=== PATIENT | male | born 1985 | race American Indian/Alaskan Native ===

== ENCOUNTER 2019-02-26 10:02 | Emergency (ER) | payer SELFPAY ==
--- NOTE | 2019-02-26 11:00 | Emergency Department Report ---
ED General Adult HPI - General Chief complaint: Psych Stated complaint: SI/DEPRESSION Time Seen by Provider: 02/26/19 10:26 Source: patient Mode of arrival: Ambulatory Limitations: No Limitations - History of Present Illness Initial comments: This is a 33-year-old gentleman. The patient states he does not have any chronic medical conditions. He does not have any formal psychiatric conditions that he is aware of. He presents to the ER with a complaint of 2 months of suicidality. He does not have a plan to kill himself. He does not have hallucinations. He does not have access to guns or firearms. He states that he has a lot to live for, including his young child, and his . He has chronic lower back pain. 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 He endorses at people at work occasionally make fun of him. He does not want to hurt anybody else. He came in today for assistance. He denies physical pain elsewhere. Symptoms are constant endorses no exacerbating or relieving factors he is aware of. -: Gradual, month(s) Consistency: other Improves with: other Worsens with: other - Related Data Previous Rx's Medication Instructions Recorded Last Taken Type Ciprofloxacin [Ciprofloxacin ORAL 500 mg PO Q12H 10 Days ml 05/25/15 Unknown Rx LIQ] Allergies Allergy/AdvReac Type Severity Reaction Status Date / Time milk AdvReac Unknown Verified 05/25/15 08:50 ED Review of Systems ROS: Stated complaint: SI/DEPRESSION Other details as noted in HPI Constitutional: malaise. denies: fever Eyes: denies: eye discharge ENT: denies: epistaxis Respiratory: denies: cough Cardiovascular: denies: chest pain Gastrointestinal: denies: abdominal pain Genitourinary: denies: dysuria Musculoskeletal: as per HPI Skin: denies: lesions Neurological: denies: confusion Psychiatric: suicidal thoughts. denies: auditory hallucinations, visual hallucinations, homicidal thoughts ED Past Medical Hx - Past Medical History Hx Psychiatric Treatment: Yes (depression, self mutilator) - Social History Smoking Status: Current Every Day Smoker Substance Use Type: None - Medications Home Medications: Home Medications Medication Instructions Recorded Confirmed Last Taken Type Ciprofloxacin [Ciprofloxacin ORAL 500 mg PO Q12H 10 Days ml 05/25/15 Unknown Rx LIQ] ED Physical Exam - General Limitations: No Limitations General appearance: alert, in no apparent distress - Head Head exam: Present: atraumatic, normocephalic - Eye Eye exam: Present: normal appearance, EOMI. Absent: nystagmus - ENT ENT exam: Present: normal exam, normal orophraynx, mucous membranes moist, normal external ear exam - Neck Neck exam: Present: normal inspection, full ROM. Absent: tenderness, meningismus - Respiratory Respiratory exam: Present: normal lung sounds bilaterally. Absent: respiratory distress - Cardiovascular Cardiovascular Exam: Present: regular rate, normal rhythm, normal heart sounds. Absent: bradycardia, tachycardia, irregular rhythm, systolic murmur, diastolic murmur, rubs, gallop - GI/Abdominal GI/Abdominal exam: Present: soft. Absent: distended, tenderness, guarding, rebound, rigid, pulsatile mass - Rectal Rectal exam: Present: deferred - Extremities Exam Extremities exam: Present: normal inspection, full ROM, other (2+ pulses noted in the bilateral upper, lower extremities. There is no long bony tenderness. The pelvis is stable. Muscular compartments are soft.). Absent: pedal edema, joint swelling, calf tenderness - Back Exam Back exam: Present: normal inspection, full ROM. Absent: tenderness, CVA tenderness (R), CVA tenderness (L), paraspinal tenderness, vertebral tenderness - Neurological Exam Neurological exam: Present: alert, normal gait, other (there is no facial droop. The tongue is midline. The extraocular movements are intact bilaterally. 5/ 5 strength bilateral upper, lower extremities. Sensation intact to light touch bilateral upper, lower extremities bilaterally. Sensation is intact to light touch in the bilateral V1, V2, V3 distribution.). Absent: motor sensory deficit - Psychiatric Psychiatric exam: Absent: homicidal ideation - Skin Skin exam: Present: warm, dry, intact, normal color. Absent: rash ED Course Vital Signs 02/26/19 02/26/19 02/26/19 10:16 11:16 13:32 Temperature 98.7 F 98.6 F Pulse Rate 88 60 Respiratory 16 18 16 Rate Blood Pressure 125/91 129/93 [Left] O2 Sat by Pulse 98 100 Oximetry - Reevaluation(s) Reevaluation #1: 02/26/19 11:48 Differential diagnosis, including but not limited to: Mood disorder, dysthymia, depression, Gen. medical exam Assessment and plan: 33-year-old gentleman, endorses 2 months of suicidality, no plan, not homicidal, not psychotic, unremarkable physical exam, states he is mo tivated to stay alive, because of his and daughter. Case management consult requested. Psychiatric consult requested. Has chronic musculoskeletal back pain, likely secondary to mechanical nature of job, we will treat his pain. Laboratory studies unremarkable. Physical exam unremarkable. Patient is calm and cooperative. Does not meet 1013 criteria at this time. Reevaluation #2: 02/26/19 12:28 Patient seen walking around the ER, and in no acute distress. Laboratory studies unremarkable. Seen by case management, provided with outpatient resources. Seen by psychiatry liaison, Hollie Byrne; patient provided with outpatient resources, and she agrees that patient does not meet 1013 criteria. ED Medical Decision Making - Lab Data Result diagrams: 02/26/19 10:47 02/26/19 10:47 Vital Signs 02/26/19 02/26/19 10:16 11:16 Temperature 98.7 F Pulse Rate 88 Respiratory 16 18 Rate Blood Pressure 125/91 [Left] O2 Sat by Pulse 98 Oximetry Lab Results 02/26/19 02/26/19 02/26/19 Range/Units 10:47 10:47 10:47 WBC (4.5-11.0) K/mm3 RBC (3.65-5.03) M/mm3 Hgb (11.8-15.2) gm/dl Hct (35.5-45.6) % MCV (84-94) fl MCH (28-32) pg MCHC (32-34) % RDW (13.2-15.2) % Plt Count (140-440) K/mm3 Lymph % (Auto) (13.4-35.0) % [place] % (Auto) (0.0-7.3) % Eos % (Auto) (0.0-4.3) % Baso % (Auto) (0.0-1.8) % Lymph # (1.2-5.4) K/mm3 [place] # (0.0-0.8) K/mm3 Eos # (0.0-0.4) K/mm3 Baso # (0.0-0.1) K/mm3 Seg Neutrophils % (40.0-70.0) % Seg Neutrophils # (1.8-7.7) K/mm3 Sodium 141 (137-145) mmol/L Potassium 4.4 (3.6-5.0) mmol/L Chloride 103.4 (98-107) mmol/L Carbon Dioxide 27 (22-30) mmol/L Anion Gap 15 mmol/L BUN 9 (9-20) mg/dL Creatinine 1.0 (0.8-1.5) mg/dL Estimated GFR > 60 ml/min BUN/Creatinine Ratio 9 % Glucose 90 (75-100) mg/dL Calcium 9.7 (8.4-10.2) mg/dL Total Creatine Kinase (55-170) units/L Salicylates < 0.3 L (2.8-20.0) mg/dL Acetaminophen < 5.0 L (10.0-30.0) ug/mL Plasma/Serum Alcohol (0-0.07) % 02/26/19 02/26/19 02/26/19 Range/Units 10:47 10:47 10:49 WBC 4.7 (4.5-11.0) K/mm3 RBC 5.01 (3.65-5.03) M/mm3 Hgb 13.6 (11.8-15.2) gm/dl Hct 41.3 (35.5-45.6) % MCV 83 L (84-94) fl MCH 27 L (28-32) pg MCHC 33 (32-34) % RDW 18.4 H (13.2-15.2) % Plt Count 161 (140-440) K/mm3 Lymph % (Auto) 30.7 (13.4-35.0) % [place] % (Auto) 9.8 H (0.0-7.3) % Eos % (Auto) 1.5 (0.0-4.3) % Baso % (Auto) 0.5 (0.0-1.8) % Lymph # 1.4 (1.2-5.4) K/mm3 [place] # 0.5 (0.0-0.8) K/mm3 Eos # 0.1 (0.0-0.4) K/mm3 Baso # 0.0 (0.0-0.1) K/mm3 Seg Neutrophils % 57.5 (40.0-70.0) % Seg Neutrophils # 2.7 (1.8-7.7) K/mm3 Sodium (137-145) mmol/L Potassium (3.6-5.0) mmol/L Chloride (98-107) mmol/L Carbon Dioxide (22-30) mmol/L Anion Gap mmol/L BUN (9-20) mg/dL Creatinine (0.8-1.5) mg/dL Estimated GFR ml/min BUN/Creatinine Ratio % Glucose (75-100) mg/dL Calcium (8.4-10.2) mg/dL Total Creatine Kinase 394 H (55-170) units/L Salicylates (2.8-20.0) mg/dL Acetaminophen (10.0-30.0) ug/mL Plasma/Serum Alcohol < 0.01 (0-0.07) % Critical care attestation.: If time is entered above; I have spent that time in minutes in the direct care of this critically ill patient, excluding procedure time. ED Disposition Clinical Impression: Mood disorder Disposition: DC-01 TO HOME OR SELFCARE Is pt being admited?: No Does the pt Need Aspirin: No Condition: Good Additional Instructions: Rest, avoid heavy lifting, and avoid strenuous physical activities. Patient may take [id number] Tylenol, as directed, alternating with [id number] ibuprofen. Patient should follow-up with the outpatient resources were provided to him by case management and psychiatry. Recommend follow-up with the primary care doctor within the next 2 weeks. Follow-up with primary care, and [facility] as referred. Return to the emergency room right away with Madden, worsening or different symptoms, or symptoms not present on the initial emergency room evaluation. Referrals: [facility] [Provider Group] - 3-5 Days [facility] [Provider Group] - 3-5 Days [facility] [Outside] - 3-5 Days Forms: Work/School Release Form(ED)
[2019-02-26 11:07] LABS: Basophils % (Auto) 0.5 % (0.0-1.8); Eosinophils # (Auto) 0.1 K/mm3 (0.0-0.4); Eosinophils % (Auto) 1.5 % (0.0-4.3); Hematocrit 41.3 % (35.5-45.6); Hemoglobin 13.6 gm/dl (11.8-15.2); Lymphocytes # (Auto) 1.4 K/mm3 (1.2-5.4); Lymphocytes % (Auto) 30.7 % (13.4-35.0); Mean Corpuscular HGB Conc 33 % (32-34); Mean Corpuscular Volume 83 fl (84-94); Monocytes # (Auto) 0.5 K/mm3 (0.0-0.8); Monocytes % (Auto) 9.8 % (0.0-7.3); Platelet Count 161 K/mm3 (140-440); Red Blood Count 5.01 M/mm3 (3.65-5.03); Red Cell Distribution Width 18.4 % (13.2-15.2)
[2019-02-26 11:19] LABS: BUN/Creatinine Ratio 9; Blood Urea Nitrogen 9 mg/dL (9-20); Calcium 9.7 mg/dL (8.4-10.2); Hemolysis Index 1
[2019-02-26] MEDS ORDERED: TYLENOL PO ONE (11:43)
[2019-02-26] MEDS ORDERED: IBUPROFEN PO ONE (11:43)
[2019-02-26 11:59] LABS: Bilirubin,Urine NEG (Negative); Blood,Urine NEG (Negative); Color,Urine Yellow (Yellow); Mucus,Urine FEW /HPF; Urobilinogen,Urine < 2.0 mg/dL (<2.0)
[2019-02-26 12:07] LABS: Amphetamine Screen,Urine PRESUMPTIVE NEGATIVE; Benzodiazepines Screen,Urine PRESUMPTIVE NEGATIVE; Cocaine Screen,Urine PRESUMPTIVE NEGATIVE; Methadone Screen,Urine PRESUMPTIVE NEGATIVE; Opiate Screen,Urine PRESUMPTIVE NEGATIVE
[2019-02-26 12:32] LABS: Cannabinoid Screen,Urine PRESUMPTIVE POSITIVE
--- NOTE | 2019-02-26 13:27 | Consultation ---
History of Present Illness - Reason for Consult Consult date: 02/26/19 Reason for consult: Mental Health Evaluation Requesting physician: CARLO HESS - Chief Complaint Chief complaint: "I work a lot" - History of Present Psychiatric Illness 33 y.o. AA male who presented to the ER for a mental health evaluation. Today the patient was calm and cooperative during the assessment. HE stated that he is working lots of hours and having some disagreements with his . He stated that the stressors he's having have brought on suicidal thoughts in the past. He denies any suicide attempts. He stated that he want a better marriage and make more money to lower his stress. He stated that he have been 2 yrs. Per collateral information from his Kristie Poe who was at the bedside, she stated that she is willing to get a job and attend therapy session with the patient. The patient stated that he is willing to attend therapy session as a couple as well. The patient is adamant that he will follow up with outpatient psy services (therapy). He denies SiIHI's and AVH's. He denies recreational drug use alcohol consumption (etoh). Medications and Allergies Allergies Allergy/AdvReac Type Severity Reaction Status Date / Time milk AdvReac Unknown Verified 05/25/15 08:50 Home Medications Medication Instructions Recorded Confirmed Last Taken Type Ciprofloxacin [Ciprofloxacin ORAL 500 mg PO Q12H 10 Days ml 05/25/15 Unknown Rx LIQ] Past psychiatric history - Past Medical History Past Medical History: No medical history Past Surgical History: No surgical history - past Psychiatric treatment and history psychiatric treatment history: Hx of self injury. Denies a fam psy hx. - Social History Social history: lives with family Mental Status Exam - Vital signs Last Vital Signs Temp 98.7 F 02/26/19 10:16 Pulse 88 02/26/19 10:16 Resp 18 02/26/19 11:16 BP 125/91 02/26/19 10:16 Pulse Ox 98 02/26/19 10:16 - Exam Narrative exam: MSE: Appearance: calm, cooperative Behavior: regular eye contact Speech: regular rate and tone Mood: "okay" Affect: congruent to mood Thought Process: linear Thought Content: denies SI/HI's and VH's Motor Activity: ambulatory Cognition: A/O x3 Insight: appropriate Judgment: appropriate Results Result Diagrams: 02/26/19 10:47 02/26/19 10:47 Abnormal lab results 02/26/19 02/26/19 02/26/19 Range/Units 10:47 10:47 10:47 MCV 83 L (84-94) fl MCH 27 L (28-32) pg RDW 18.4 H (13.2-15.2) % [place] % (Auto) 9.8 H (0.0-7.3) % Total Creatine Kinase (55-170) units/L Urine pH (5.0-7.0) Salicylates < 0.3 L (2.8-20.0) mg/dL Acetaminophen < 5.0 L (10.0-30.0) ug/mL 02/26/19 02/26/19 Range/Units 10:49 11:48 MCV (84-94) fl MCH (28-32) pg RDW (13.2-15.2) % [place] % (Auto) (0.0-7.3) % Total Creatine Kinase 394 H (55-170) units/L Urine pH 8.0 H (5.0-7.0) Salicylates (2.8-20.0) mg/dL Acetaminophen (10.0-30.0) ug/mL All other labs normal. Assessment and Plan Assessment and plan: Impression; Adjustment DO. Cannabis Use DO. Hx of self Injury (cutting). Today the patient was calm and cooperative during the assessment. DDx: R/O MDD Recommendation/Plan: Discussed generalized coping skills with the patient, he verbalized understanding. Dispo: The patient can follow up with [facility] for outpatient psy services. Staffed with Dr Joseph Moctezuma.
[2019-02-26 13:36] VITALS: BP 129/93
== END 2019-02-26 13:36 | disposition home or self-care (01) ==
LOC: ED 10:02 → EEVIPCON 10:02 → ED 13:36
DX: F39 Unspecified mood [affective] disorder (principal); F43.20 Adjustment disorder, unspecified; F12.10 Cannabis abuse, uncomplicated; F32.9 Major depressive disorder, single episode, unspecified; Z91.011 Allergy to milk products
CPT/HCPCS: 36415; 80048; 80307; 80320; 81001; 82550; 85025; G0480

== ENCOUNTER 2019-06-06 07:44 | Emergency (ER) | payer SELFPAY ==
[2019-06-06 07:49] VITALS: BP 152/95
[2019-06-06] MEDS ORDERED: LIDOCAINE VISCOUS 2% 15 ML ORAL LIQD PO ONE (08:27)
--- NOTE | 2019-06-06 08:49 | Emergency Department Report ---
HPI - General Chief Complaint: Sore Throat Time Seen by Provider: 06/06/19 08:27 - HPI HPI: Room 43 The patient is a 33-year-old male presenting with chief complaint of sore throat. The patient states for 1.5 days she's had a sore throat and cough that is occasionally productive. Patient states he has other family members in the home with the same symptoms. Patient denies history of fever. Patient states she may have occasional rhinorrhea. Patient gives his pain score 6-7/10 ED Past Medical Hx - Past Medical History Previous Medical History?: Yes Hx Psychiatric Treatment: Yes (depression, self mutilator) - Surgical History Past Surgical History?: No - Family History Family history: no significant - Social History Smoking Status: Current Every Day Smoker (1 pack per day) Substance Use Type: Marijuana - Medications Home Medications: Home Medications Medication Instructions Recorded Confirmed Last Taken Type Ciprofloxacin [Ciprofloxacin ORAL 500 mg PO Q12H 10 Days ml 05/25/15 Unknown Rx LIQ] Amoxicillin [Amoxicillin TAB] 875 mg PO BID #20 tablet 06/06/19 Unknown Rx HYDROcodone/APAP 5-325 [[place] 1 - 2 each PO Q6HR PRN #10 tablet 06/06/19 Unknown Rx 5/325] Ibuprofen [Motrin 800 MG tab] 800 mg PO Q8HR PRN #20 tablet 06/06/19 Unknown Rx ED Review of Systems ROS: Stated complaint: sore throat/cough Other details as noted in HPI Constitutional: denies: fever Eyes: denies: eye pain ENT: throat pain Respiratory: cough Cardiovascular: denies: chest pain Endocrine: no symptoms reported Gastrointestinal: denies: vomiting Genitourinary: denies: dysuria Musculoskeletal: denies: back pain Neurological: denies: headache Physical Exam - Physical Exam Vital Signs: Vital Signs 06/06/19 07:46 Temperature 98.1 F Pulse Rate 79 Respiratory 16 Rate Blood Pressure 152/95 O2 Sat by Pulse 98 Oximetry Physical Exam: GENERAL: The patient is well-developed well-nourished male sitting in chair not appear to be in acute distress. [] HEENT: Normocephalic. Atraumatic. Extraocular motions are intact. Patient has moist mucous membranes. Pharynx slightly injected. No exudate seen NECK: Supple. No meningitic signs are noted. There is no stridor CHEST/LUNGS: Clear to auscultation. There is no respiratory distress noted. HEART/CARDIOVASCULAR: Regular. There is no tachycardia. There is no gallop rub or murmur. ABDOMEN: Abdomen is soft, nontender. Patient has normal bowel sounds. There is no abdominal distention. SKIN: There is no rash. There is no edema. There is no diaphoresis. NEURO: The patient is awake, alert, and oriented. The patient is cooperative. The patient has normal speech MUSCULOSKELETAL: There is no evidence of acute injury. ED Course Vital Signs 06/06/19 07:46 Temperature 98.1 F Pulse Rate 79 Respiratory 16 Rate Blood Pressure 152/95 O2 Sat by Pulse 98 Oximetry ED Medical Decision Making - Differential Diagnosis pharyngitis Critical care attestation.: If time is entered above; I have spent that time in minutes in the direct care of this critically ill patient, excluding procedure time. ED Disposition Clinical Impression: Acute pharyngitis Disposition: DC-01 TO HOME OR SELFCARE Is pt being admited?: No Does the pt Need Aspirin: No Condition: Stable Instructions: Pharyngitis (ED) Prescriptions: Amoxicillin [Amoxicillin TAB] 875 mg PO BID #20 tablet Ibuprofen [Motrin 800 MG tab] 800 mg PO Q8HR PRN #20 tablet PRN Reason: Pain, Moderate (4-6) HYDROcodone/APAP 5-325 [[place] 5/325] 1 - 2 each PO Q6HR PRN #10 tablet PRN Reason: Pain Referrals: [facility] [Outside] - 3-5 Days Time of Disposition: 08:50
== END 2019-06-06 09:12 | disposition home or self-care (01) ==
LOC: ED 07:44
DX: J02.9 Acute pharyngitis, unspecified (principal); F32.9 Major depressive disorder, single episode, unspecified; F17.200 Nicotine dependence, unspecified, uncomplicated; F12.10 Cannabis abuse, uncomplicated
CPT/HCPCS: 99282

== ENCOUNTER 2019-06-23 03:34 | Emergency (ER) | payer SELFPAY ==
[2019-06-23] MEDS ORDERED: KETOROLAC 30 MG/1 ML INJ IM ONE (07:26)
--- NOTE | 2019-06-23 07:29 | Emergency Department Report ---
ED Back Pain/Injury HPI - General Chief Complaint: Back Pain/Injury Stated Complaint: BACK, HIPS, AND RIGHT KNEE PAIN Time Seen by Provider: 06/23/19 07:10 Source: patient Limitations: No Limitations - History of Present Illness Initial Comments: This is a 33-year-old -[place] male presents to the emergency room with low back pain radiating to bilateral knees for 3-4 days. Patient reports pain is worse with movement pain. He reports chronic back pain with no follow-up. Patient states he was seen in this emergency room 2-3 weeks ago and prescribed pain medication which is not improving pain. He reports pain initially started on right lower extremity but now bilaterally. He denies change in urinary or bowel pattern, recent injury, weakness, fever, or chills. MD Complaint: back pain Onset/Timin -: days(s) Similar Symptoms Previously: Yes Place: home Radiation: left leg, right leg Severity: severe Severity scale (0 -10): 10 Quality: sharp Consistency: intermittent Improves With: none Worsens With: movement, walking Context: unknown Associated Symptoms: denies: numbness, difficulty urinating, incontinence, fever/chills Treatments Prior to Arrival: prescription analgesics - Related Data Previous Rx's Medication Instructions Recorded Last Taken Type Ciprofloxacin [Ciprofloxacin ORAL 500 mg PO Q12H 10 Days ml 05/25/15 Unknown Rx LIQ] Amoxicillin [Amoxicillin TAB] 875 mg PO BID #20 tablet 06/06/19 Unknown Rx HYDROcodone/APAP 5-325 [[place] 1 - 2 each PO Q6HR PRN #10 tablet 06/06/19 Unknown Rx 5/325] Ibuprofen [Motrin 800 MG tab] 800 mg PO Q8HR PRN #20 tablet 06/06/19 Unknown Rx Methocarbamol [Robaxin] 500 mg PO BID PRN #15 tablet 06/23/19 Unknown Rx Naproxen [Naprosyn] 500 mg PO BID PRN #20 tablet 06/23/19 Unknown Rx Allergies Allergy/AdvReac Type Severity Reaction Status Date / Time milk AdvReac Unknown Verified 05/25/15 08:50 ED Review of Systems ROS: Stated complaint: BACK, HIPS, AND RIGHT KNEE PAIN Other details as noted in HPI Constitutional: denies: chills, fever Respiratory: denies: cough, shortness of breath, wheezing Cardiovascular: denies: chest pain, palpitations Gastrointestinal: denies: abdominal pain, nausea, diarrhea Musculoskeletal: back pain. denies: joint swelling, arthralgia Skin: denies: rash, lesions Neurological: denies: headache, weakness, paresthesias Psychiatric: denies: anxiety, depression ED Past Medical Hx Family history: no significant family history ED Back Pain Physical Exam - Exam General: Vital signs noted. No distress. Alert and acting appropriately. Back/Abdomen: Yes Sacroiliac Tenderness (bilaterally, no midline tenderness, no step-off, no deformity), Yes Straight Leg Raise Pain (bilaterally), No Abdominal Tenderness, No Perithoracic Tenderness, No Perilumbar Tenderness, No Flank Tenderness Neuro: Yes Normal Sensation, Yes Normal DTR's, Yes Normal Gait, No Motor Weakness ED Course Vital Signs 06/23/19 03:39 Temperature 99.4 F Pulse Rate 98 H Respiratory 18 Rate Blood Pressure 167/100 O2 Sat by Pulse 95 Oximetry Vital Signs 06/23/19 06/23/19 06/23/19 03:39 07:36 07:37 Temperature 99.4 F Pulse Rate 98 H 90 Respiratory 18 18 18 Rate Blood Pressure 167/100 Blood Pressure 154/90 [Left] O2 Sat by Pulse 95 98 Oximetry ED Medical Decision Making - Medical Decision Making Patient was examined by me. Patient is nontoxic appearing and stable. Vitals are stable. Given analgesics while in the ER. This is acute on chronic low back pain with sciatica. Patient have 3-4 year history of chronic back pain wi thout follow up. Bilateral sacroiliac TTP, no step-off, deformity, erythema, or swelling. Positive straight leg test bilaterally. Reports improvement of pain with analgesics on reevaluation. Start muscle relaxers and analgesics. Referral to PCP and orthopedic for follow-up. Follow up with PCP or return to the ER with worsening symptoms. Patient discharged home in stable condition. Critical care attestation.: If time is entered above; I have spent that time in minutes in the direct care of this critically ill patient, excluding procedure time. ED Disposition Clinical Impression: Acute sciatica Low back pain Qualifiers: Chronicity: acute Back pain laterality: bilateral Sciatica presence: with sciatica Sciatica laterality: bilateral sciatica Qualified Code(s): M54.42 - Lumbago with sciatica, left side; M54.41 - Lumbago with sciatica, right side Disposition: TO HOME OR SELFCARE Is pt being admited?: No Condition: Stable Instructions: Lumbar Radiculopathy (ED), Sciatica (ED) Additional Instructions: Rest Use ice or heat on affected area for 20 minutes and off for 2 hours. Take pain medication as needed for pain. Don't drive or operate heavy machinery while taking muscle relaxers because they may cause drowsiness. Follow up with Primary Care Provider in 2-3 days. Prescriptions: Naproxen [Naprosyn] 500 mg PO BID PRN #20 tablet PRN Reason: Pain , Severe (7-10) Methocarbamol [Robaxin] 500 mg PO BID PRN #15 tablet PRN Reason: Muscle Spasm Referrals: [facility] [Outside] - 3-5 Days [facility] [Outside] - 3-5 Days [facility] [Outside] - 3-5 Days SHANTI GASTON MD [Staff Physician] - 3-5 Days Forms: Work/School Release Form(ED), Accompanied Note Time of Disposition: 08:12
[2019-06-23 08:18] VITALS: BP 151/86
== END 2019-06-23 08:17 | disposition home or self-care (01) ==
LOC: ED 03:34
DX: M54.41 Lumbago with sciatica, right side (principal); M54.42 Lumbago with sciatica, left side; Z91.011 Allergy to milk products
CPT/HCPCS: 96372; 99282; J1885

== ENCOUNTER 2020-11-10 09:20 | Emergency (ER) | payer SELFPAY ==
[2020-11-10 09:28] VITALS: BP 146/102
[2020-11-10] MEDS ORDERED: TETRACAINE 0.5% OPHTH SOLN 4ML OU ONE (11:03)
[2020-11-10] MEDS ORDERED: FLUORESCEIN 1 MG STRIP OP ONE (11:03)
--- NOTE | 2020-11-10 11:16 | Emergency Department Report ---
ED General Adult HPI - General Chief complaint: Eye Problems Stated complaint: LT EYE PAIN/SWOLLEN Time Seen by Provider: 11/10/20 10:29 Source: patient Mode of arrival: Ambulatory Limitations: No Limitations - History of Present Illness Initial comments: 35-year-old male patient presents to the emergency department with complaints of left eye pain and swelling starting yesterday. 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 He endorses blurred vision. He does not wear contact lenses. Denies fever, chills, sore throat, ear pain, congestion, purulent drainage, diplopia, vision loss. Denies all other complaints at this time. - Related Data Previous Rx's Medication Instructions Recorded Last Taken Type RX: Ciprofloxacin [Ciprofloxacin 500 mg PO Q12H 10 Days ml 05/25/15 Unknown Rx ORAL LIQ] HYDROcodone/APAP 5-325 [[place] 1 - 2 each PO Q6HR PRN #10 tablet 06/06/19 Unknown Rx 5/325] RX: Amoxicillin [Amoxicillin TAB] 875 mg PO BID #20 tablet 06/06/19 Unknown Rx RX: Ibuprofen [Motrin 800 MG tab] 800 mg PO Q8HR PRN #20 tablet 06/06/19 Unknown Rx Methocarbamol [Robaxin] 500 mg PO BID PRN #15 tablet 06/23/19 Unknown Rx Naproxen [Naprosyn] 500 mg PO BID PRN #20 tablet 06/23/19 Unknown Rx Erythromycin [Erythromycin Ophth 0 gm OU QID 5 Days tube 11/10/20 Unknown Rx Oint] Allergies Allergy/AdvReac Type Severity Reaction Status Date / Time milk AdvReac Unknown Verified 11/10/20 09:24 ED Review of Systems ROS: Stated complaint: LT EYE PAIN/SWOLLEN Other details as noted in HPI Other: GENERAL: Negative for fever. EYE: Positive for eye pain/swelling and blurred vision. CARDIOVASCULAR: Negative for chest pain. PULMONARY: Negative for shortness of breath. GASTROINTESTINAL: Negative for abdominal pain. MUSCULOSKELETAL: Negative for back pain. NEUROLOGICAL: Negative for headache. INTEGUMENTARY: Negative for rash. ED Past Medical Hx - Past Medical History Hx Hypertension: Yes Hx Psychiatric Treatment: Yes (depression, self mutilator) - Surgical History Past Surgical History?: No - Social History Smoking Status: Never Smoker Substance Use Type: Marijuana - Medications Home Medications: Home Medications Medication Instructions Recorded Confirmed Last Taken Type RX: Ciprofloxacin [Ciprofloxacin 500 mg PO Q12H 10 Days ml 05/25/15 Unknown Rx ORAL LIQ] HYDROcodone/APAP 5-325 [[place] 1 - 2 each PO Q6HR PRN #10 tablet 06/06/19 Unknown Rx 5/325] RX: Amoxicillin [Amoxicillin TAB] 875 mg PO BID #20 tablet 06/06/19 Unknown Rx RX: Ibuprofen [Motrin 800 MG tab] 800 mg PO Q8HR PRN #20 tablet 06/06/19 Unknown Rx Methocarbamol [Robaxin] 500 mg PO BID PRN #15 tablet 06/23/19 Unknown Rx Naproxen [Naprosyn] 500 mg PO BID PRN #20 tablet 06/23/19 Unknown Rx Erythromycin [Erythromycin Ophth 0 gm OU QID 5 Days tube 11/10/20 Unknown Rx Oint] ED Physical Exam - General Limitations: No Limitations - Other Other exam information: General: Awake, appropriately interactive, no acute distress. Eyes: PERRL. EOMI. Conjugate gaze. Conjunctivae are pink. No conjunctival injection or edema. Mild left periorbital edema. No pain with extraocular movements. There is a small tender papule noted to the medial aspect of the left conjunctiva, no purulent drainage. Normal sclera. Tetracaine was used for local anesthesia. Fluorescein strip was used. Razo lamp was used for visualization. No fluorescein uptake noted. No corneal abrasions. No corneal ulcerations. No foreign body found. Visual acuity 20/20 right and 20/25 left. Neck: Supple. Full range of motion intact. Cardiovascular: Normal peripheral perfusion. Pulmonary: No respiratory distress. Patient is speaking normally without use of accessory muscles. Skin: No apparent rashes or lesions. Neurological: No facial asymmetry. Speech is clear. Follows commands. Patient is alert and oriented. Musculoskeletal: Moves all four extremities spontaneously with normal range of motion. Psych: Cooperative. Appropriate mood and affect. ED Course Vital Signs 11/10/20 09:24 Temperature 98.1 F Pulse Rate 68 Respiratory 18 Rate Blood Pressure 146/102 O2 Sat by Pulse 98 Oximetry ED Medical Decision Making - Medical Decision Making Differential diagnosis including but not limited to: chalazion, hordeolum, corneal abrasion, corneal ulcer, foreign body, conjunctivitis On reevaluation, patient remains stable. History and exam findings consistent with hordeolum. Visual acuities obtained and documented. Patient does not wear contact lenses. No clinical indication for further diagnostic work-up on an emergent basis at this time. Patient will be discharged home with ophthalmic ointment and referred to travel accommodations rater for close outpatient follow-up. Patient expressed understanding and is agreeable to plan of care. Strict return precautions provided. History, exam, diagnostic testing, and current condition do not suggest worrisome pathology to warrant further testing, continued ED treatment, admission, or surgical evaluation at this point. Given the low probability of a significant medical illness, it would be more likely to result in harm than benefit to perform further testing at this stage. Discussed findings, presumptive diagnosis, need for follow-up and specific signs/symptoms that should prompt immediate return to the emergency department. Instructions were explained in detail to the patient in addition to giving written discharge information. Patient expressed understanding and was given the opportunity to ask questions, all of which were satisfactorily answered prior to discharge home. Critical care attestation.: If time is entered above; I have spent that time in minutes in the direct care of this critically ill patient, excluding procedure time. ED Disposition Clinical Impression: Hordeolum of left lower eyelid Qualifiers: Hordeolum type: unspecified type Qualified Code(s): H00.015 - Hordeolum externum left lower eyelid Disposition: DC-01 TO HOME OR SELFCARE Is pt being admited?: No Does the pt Need Aspirin: No Condition: Stable Instructions: Stye Additional Instructions: Use Erythromycin ointment as directed. Take Tylenol every 4 hours and Motrin every 8 hours as needed for pain. Apply warm compresses to affected area as needed. Follow-up with primary care provider to establish care. Follow-up with ophthalmology this week. Let the travel accommodations rater know that your visual acuity in the left eye today was 20/20 in the right eye and 20/25 in the left eye. Call today to schedule these appointments. See referral information below. Return to the emergency department immediately for new or worsening symptoms. Prescriptions: Erythromycin [Erythromycin Ophth Oint] 0 gm OU QID 5 Days tube Referrals: KALA BULLARD MD [Staff Physician] - 3-5 Days MERVIN DODD MD [Staff Physician] - 3-5 Days Forms: Work/School Release Form(ED) Time of Disposition: 12:02
== END 2020-11-10 12:30 | disposition home or self-care (01) ==
LOC: ED 09:20
DX: H00.015 Hordeolum externum left lower eyelid (principal); I10 Essential (primary) hypertension; F32.9 Major depressive disorder, single episode, unspecified; F12.10 Cannabis abuse, uncomplicated; Z79.2 Long term (current) use of antibiotics; Z79.899 Other long term (current) drug therapy; Z91.011 Allergy to milk products

== ENCOUNTER 2020-12-21 20:57 | Emergency (ER) | payer SELFPAY | END 2020-12-21 21:02 | disposition left against medical advice (07) | LOC: ED 20:57 ==

== ENCOUNTER 2021-01-16 20:57 | Emergency (ER) | payer SELFPAY ==
[2021-01-16 21:57] VITALS: BP 128/87
--- NOTE | 2021-01-16 23:26 | XRay Report ---
Cervical spine radiograph, 4 views HISTORY: Pain COMPARISON: None FINDINGS: Cervical spinal alignment is preserved. There is mild disc space height loss at C4-C5 and C 5-C6. No evidence of fracture. Odontoid view is intact. Prevertebral soft tissues are within normal l imits. Visualized lung apices are clear. IMPRESSION: No acute abnormality. Mild multilevel cervical spondylosis, greatest at C4-C5 and C5-C6. Signer Name: Roger Aguila MD Signed: 01/16/2021 11:22 PM Workstation Name: [id number]
--- NOTE | 2021-01-17 00:55 | Emergency Department Report ---
ED General Adult HPI - General Chief complaint: Back Pain/Injury Stated complaint: BCAK PAIN Time Seen by Provider: 01/17/21 00:19 Source: patient Mode of arrival: Ambulatory Limitations: No Limitations - History of Present Illness Initial comments: 35-year-old male patient presents to emergency department with complaints of right-sided neck and back pain for 2 days. No preceding fall, trauma, injury. Pain is worse with heavy lifting. He has not taken any srjy-eqf-hlhxjhd medication for his symptoms. No history of similar symptoms. Denies headache, paresthesias, numbness, weakness. Denies all other complaints at this time. - Related Data Previous Rx's Medication Instructions Recorded Last Taken Type Ciprofloxacin [Ciprofloxacin ORAL 500 mg PO Q12H 10 Days ml 05/25/15 Unknown Rx LIQ] Amoxicillin [Amoxicillin TAB] 875 mg PO BID #20 tablet 06/06/19 Unknown Rx HYDROcodone/APAP 5-325 [[place] 1 - 2 each PO Q6HR PRN #10 tablet 06/06/19 Unknown Rx 5/325] Ibuprofen [Motrin 800 MG tab] 800 mg PO Q8HR PRN #20 tablet 06/06/19 Unknown Rx Methocarbamol [Robaxin] 500 mg PO BID PRN #15 tablet 06/23/19 Unknown Rx Naproxen [Naprosyn] 500 mg PO BID PRN #20 tablet 06/23/19 Unknown Rx Erythromycin [Erythromycin Ophth 0 gm OU QID 5 Days tube 11/10/20 Unknown Rx Oint] Allergies Allergy/AdvReac Type Severity Reaction Status Date / Time milk AdvReac Unknown Verified 11/10/20 09:24 ED Review of Systems ROS: Stated complaint: BCAK PAIN Other details as noted in HPI Other: GENERAL: Negative for fever. CARDIOVASCULAR: Negative for chest pain. PULMONARY: Negative for shortness of breath. GASTROINTESTINAL: Negative for abdominal pain. MUSCULOSKELETAL: Positive for neck pain and neck pain NEUROLOGICAL: Negative for headache. INTEGUMENTARY: Negative for rash. ED Past Medical Hx - Past Medical History Previous Medical History?: Yes Hx Hypertension: Yes Hx Psychiatric Treatment: Yes (depression, self mutilator) - Surgical History Past Surgical History?: No - Social History Smoking Status: Never Smoker Substance Use Type: Marijuana - Medications Home Medications: Home Medications Medication Instructions Recorded Confirmed Last Taken Type Ciprofloxacin [Ciprofloxacin ORAL 500 mg PO Q12H 10 Days ml 05/25/15 Unknown Rx LIQ] Amoxicillin [Amoxicillin TAB] 875 mg PO BID #20 tablet 06/06/19 Unknown Rx HYDROcodone/APAP 5-325 [[place] 1 - 2 each PO Q6HR PRN #10 tablet 06/06/19 Unknown Rx 5/325] Ibuprofen [Motrin 800 MG tab] 800 mg PO Q8HR PRN #20 tablet 06/06/19 Unknown Rx Methocarbamol [Robaxin] 500 mg PO BID PRN #15 tablet 06/23/19 Unknown Rx Naproxen [Naprosyn] 500 mg PO BID PRN #20 tablet 06/23/19 Unknown Rx Erythromycin [Erythromycin Ophth 0 gm OU QID 5 Days tube 11/10/20 Unknown Rx Oint] ED Physical Exam - General Limitations: No Limitations - Other Other exam information: General: Awake, appropriately interactive, no acute distress. Neck: Supple. Full range of motion intact. Diffuse posterior cervical tenderness without step-offs. Cardiovascular: Normal peripheral perfusion. Pulmonary: No respiratory distress. Patient is speaking normally without use of accessory muscles. Skin: No apparent rashes or lesions. Neurological: No facial asymmetry. Speech is clear. Follows commands. Patient is alert and oriented. Musculoskeletal: Right thoracolumbar paraspinal tenderness. No palpable muscle spasm. Moves all four extremities spontaneously with normal range of motion. Ambulatory without assistance. Strength and sensation intact throughout. Psych: Cooperative. Appropriate mood and affect. ED Course Vital Signs 01/16/21 21:54 Temperature 98.5 F Pulse Rate 89 Respiratory 16 Rate Blood Pressure 128/87 O2 Sat by Pulse 95 Oximetry ED Medical Decision Making - Radiology Data [facility] [address] [place] [address] XRay Report Signed Patient: DANTE COLON JR MR#: [id number] 74 : 1985 Acct:[id number] Age/Sex: 35 / M ADM Date: 01/16/21 Loc: ED Attending Dr: Ordering Physician: KALINA MONTGOMERY MD Date of Service: 01/16/21 Procedure(s): XR spine cervical 2-3V Accession Number(s): [id number] cc: ED MD ULISES Fluoro Time In Minutes: Cervical spine radiograph, 4 views HISTORY: Pain COMPARISON: None FINDINGS: Cervical spinal alignment is preserved. There is mild disc space height loss at C4-C5 and C5-C6. No evidence of fracture. Odontoid view is intact. Prevertebral soft tissues are within normal limits. Visualized lung apices are clear. IMPRESSION: No acute abnormality. Mild multilevel cervical spondylosis, greatest at C4-C5 and C5- C6. Signer Name: Alexander Aguila MD Signed: 01/16/2021 11:22 PM Workstation Name: [id number] Transcribed By: PILO Dictated By: ALEXANDER AGUILA MD Electronically Authenticated By: ALEXANDER AGUILA MD Signed Date/Time: 01/16/212321 DD/ 20 TD/TT: - Medical Decision Making Differential diagnosis including but not limited to: sprain, strain, disc herniation, osteoarthritis, spinal stenosis Patient presents to the emergency department complaints of nontraumatic neck and back pain. He is afebrile, hemodynamically stable, neurologically intact, ambulatory without assistance. X-rays ordered by weed eradicator prior to MSE show cervical spondylosis without acute process. No clinical evidence to warrant further diagnostic work-up on an emergent basis at this time. Patient has not tried any bijb-ckd-rdwhgfv medications. He will be discharged home with referral to primary care provider for close outpatient follow-up. Patient expressed understanding and is agreeable to plan of care. Strict return precautions provided. Repeat exam is unremarkable and benign. History, exam, diagnostic testing, and current condition do not suggest worrisome pathology to warrant further testing, continued ED treatment, admission, or surgical evaluation at this point. Given the low probability of a significant medical illness, it would be more likely to result in harm than benefit to perform further testing at this stage. Discussed findings, presumptive diagnosis, need for follow-up and specific signs/symptoms that should prompt immediate return to the emergency department. Instructions were explained in detail to the patient in addition to giving written discharge information. Patient expressed understanding and was given the opportunity to ask questions, all of which were satisfactorily answered prior to discharge home. Critical care attestation.: If time is entered above; I have spent that time in minutes in the direct care of this critically ill patient, excluding procedure time. ED Disposition Clinical Impression: Cervical spondylosis Disposition: - TO HOME OR SELFCARE Is pt being admited?: No Does the pt Need Aspirin: No Condition: Stable Instructions: Spondylolysis Rehab-SportsMed Additional Instructions: Take Tylenol every 4 hours and Motrin every 8 hours as needed for pain. Apply heat to affected area as needed for pain. Gradually advance physical activity slowly as tolerated. Follow-up with primary care provider this week. Call tomorrow to schedule an appointment. Return to the emergency department immediately for new or worsening symptoms Referrals: KALA BULLARD MD [Staff Physician] - 3-5 Days [facility] [Provider Group] - 3-5 Days Forms: Work/School Release Form(ED) Time of Disposition: 00:56
== END 2021-01-17 01:16 | disposition home or self-care (01) ==
LOC: ED 20:57
DX: M47.812 Spondylosis without myelopathy or radiculopathy, cervical region (principal); I10 Essential (primary) hypertension; F32.9 Major depressive disorder, single episode, unspecified; F12.90 Cannabis use, unspecified, uncomplicated; Z79.899 Other long term (current) drug therapy; Z91.011 Allergy to milk products
CPT/HCPCS: 72040

== ENCOUNTER 2021-07-11 11:47 | Emergency (ER) | payer SELFPAY ==
--- NOTE | 2021-07-11 13:02 | Emergency Department Report ---
ED Psych HPI - General Chief Complaint: Psych Stated Complaint: DEPRESSION & ANXIETY Time Seen by Provider: 07/11/21 12:56 Source: patient Mode of arrival: Ambulatory - History of Present Illness Initial Comments: Patient presents seeking help from a psychiatric perspective. He is not suicidal homicidal. Is not delusional. He is not psychotic. He is not hearing voices. He states that he just needs help. He has a long history of mental health disorder as well as depression. He states that he had moved to [place] and is now moved back to the area. He came here because he needed help. He has not been on medication in over a year. He was on medication for mood disorder and depression. He states that it helped. He wants to get back on medication. He wants to be directed for outpatient therapy. He does not believe he needs to talk to somebody today. Again, is not suicidal homicidal. He is not hearing voices that are telling him to harm himself. Patient does not know what medications he was on historically. He does not know dosages. - Related Data Previous Rx's Medication Instructions Recorded Last Taken Type Ibuprofen [Motrin 800 MG tab] 800 mg PO Q8HR PRN #20 tablet 06/06/19 Unknown Rx Sertraline [Zoloft] 50 mg PO QDAY #30 tablet 07/11/21 Unknown Rx hydrOXYzine PAMOATE [Vistaril] 25 mg PO QHS #30 capsule 07/11/21 Unknown Rx Allergies Allergy/AdvReac Type Severity Reaction Status Date / Time milk AdvReac Unknown Verified 11/10/20 09:24 ED Review of Systems ROS: Stated complaint: DEPRESSION & ANXIETY Other details as noted in HPI Comment: All other systems reviewed and negative Constitutional: denies: fever Eyes: denies: vision change ENT: denies: epistaxis Respiratory: denies: cough Cardiovascular: denies: chest pain Endocrine: denies: unexplained weight loss Gastrointestinal: denies: hematemesis Genitourinary: denies: hematuria Musculoskeletal: denies: back pain Skin: denies: rash Neurological: denies: headache Psychiatric: as per HPI Hematological/Lymphatic: denies: easy bruising ED Past Medical Hx - Past Medical History Hx Hypertension: Yes Hx Psychiatric Treatment: Yes (depression, self mutilator) - Family History Family history: no significant - Social History Smoking Status: Never Smoker Substance Use Type: Marijuana - Medications Home Medications: Home Medications Medication Instructions Recorded Confirmed Last Taken Type Ibuprofen [Motrin 800 MG tab] 800 mg PO Q8HR PRN #20 tablet 06/06/19 Unknown Rx Sertraline [Zoloft] 50 mg PO QDAY #30 tablet 07/11/21 Unknown Rx hydrOXYzine PAMOATE [Vistaril] 25 mg PO QHS #30 capsule 07/11/21 Unknown Rx ED Physical Exam - General Limitations: No Limitations, Other (Pulse ox noted and) General appearance: alert, in no apparent distress - Head Head exam: Present: atraumatic, normocephalic - Eye Eye exam: Present: normal appearance, EOMI - ENT ENT exam: Present: normal orophraynx, normal external ear exam - Neck Neck exam: Present: normal inspection. Absent: meningismus - Respiratory Respiratory exam: Present: normal lung sounds bilaterally. Absent: respiratory distress - Cardiovascular Cardiovascular Exam: Present: regular rate, normal rhythm - GI/Abdominal GI/Abdominal exam: Present: soft - Extremities Exam Extremities exam: Present: normal capillary refill. Absent: calf tenderness - Back Exam Back exam: Absent: CVA tenderness (R), CVA tenderness (L) - Neurological Exam Neurological exam: Present: alert, oriented X3, CN II-XII intact, normal gait. Absent: motor sensory deficit - Psychiatric Psychiatric exam: Present: normal affect, normal mood - Skin Skin exam: Present: warm, dry ED Course Vital Signs 07/11/21 07/11/21 11:49 13:51 Temperature 98.5 F 98.6 F Pulse Rate 95 H 88 Respiratory 17 18 Rate Blood Pressure 142/101 135/96 [Left] O2 Sat by Pulse 100 99 Oximetry - Reevaluation(s) Reevaluation #1: 07/11/21 13:02 Medications were ordered. Old records reviewed. Reevaluation #2: 07/11/21 15:44 Labs have been noted. 07/11/21 15:44 ED Medical Decision Making - Lab Data Result diagrams: 07/11/21 14:58 - Medical Decision Making Patient be started on medication and referred for outpatient evaluation and follow-up. He is not actively suicidal. He is not homicidal. He states that he feels much better than he did last night when the crisis unit was involved. Patient is not hearing voices telling him to harm himself. There are no command hallucinations. He is not paranoid. There is no evidence of acute delusion. He presented for psychiatric evaluation. He is comfortable with outpatient evaluation and follow-up. I do not believe that he would meet criteria for any type of mental health hold. Critical Care Time: No Critical care attestation.: If time is entered above; I have spent that time in minutes in the direct care of this critically ill patient, excluding procedure time. ED Disposition Clinical Impression: Anxiety Depression Qualifiers: Depression Type: unspecified Qualified Code(s): F32.A - Depression, unspecified Disposition: HOME / SELF CARE / HOMELESS Is pt being admited?: No Condition: Stable Instructions: Living With Depression, Managing Anxiety, Adult Additional Instructions: Drink plenty water. Return for problems. Follow-up as directed with behavioral health as well as a primary care physician. Continue to avoid drug use and marijuana use. Professional and Agency Contacts To help [facility](28/01) [place] Crisis Line: Suicide Prevention Line: Crisis Text Line: Text START to 034442 Emergency: 911 Outpatient COMMUNITY Behavioral Health Resources: [facility]: [facility] [address] [place], [place] [address] [address] [facility] - [address] [place] [address] Saturday thru Saturday - 8am - 5pm [facility] Address: [address], [place] [address] [facility]: [facility] Address: [address] [place] [address] Saturday thru Saturday- 7am-2pm [facility] Address: [address] [place] [address] Saturday thru Saturday: 8:30AM-5PM OUTPATIENT MENTAL HEALTH RESOURCES [facility], [address] [place], [place] [address], [place] [address] [facility] Roberto Rhoades MD: [address] Roberto [address] [place] [address] [facility]: [address] [place] [address] [employer] [facility] [address] [place] [address] [phone] [facility]: [address] [facility] [address] [place] [address] [facility]: [address] [facility] Roberto. B [facility] [address] [facility]: [address] [place], [place] Georgi Gonzales MD: [address] [facility] [id number] [facility]: [address] [place], [place] [id number] [phone] [place] CRISIS AND ACCESS LINE: * In case of an emergency, please contact the following numbers: [place] Crisis and Access Line: Number: Crisis Text Line: (Text START) Number: 152550 Suicide Prevention Line: Number: Emergency Number: 911 SUBSTANCE ABUSE PROGRAMS: [facility]: Location: [place], [place] [facility] Address: [address] [place] [address] [facility]: Address: [address] [place] [address] [facility]: Address: [address] [place] [address] [facility]: Address: [address] [place] [address] [facility] Address: [address] [place] [address]. Please contact above numbers to attempt placement into free based program. Medicaid Programs: [facility]: Address: [address] [place] [address] [facility]: Address: [address] [place] [address] Prescriptions: hydrOXYzine PAMOATE [Vistaril] 25 mg PO QHS #30 capsule Sertraline [Zoloft] 50 mg PO QDAY #30 tablet Referrals: ARIELA KITCHEN MD [Staff Physician] - 3-5 Days
[2021-07-11] MEDS ORDERED: OLANzapine ZYDIS 5 MG TAB PO ONE (13:06)
[2021-07-11 13:52] VITALS: BP 135/96
[2021-07-11 15:39] LABS: Alanine Aminotransferase 28 units/L (7-56); Albumin 4.8 g/dL (3.9-5); BUN/Creatinine Ratio 12; Blood Urea Nitrogen 11 mg/dL (9-20); Calcium 9.9 mg/dL (8.4-10.2); Hemolysis Index 22
== END 2021-07-11 16:53 | disposition home or self-care (01) ==
LOC: ED 11:47
DX: F41.8 Other specified anxiety disorders (principal); F32.A Depression, unspecified; F17.200 Nicotine dependence, unspecified, uncomplicated; I10 Essential (primary) hypertension
CPT/HCPCS: 36415; 80053; 99283

== ENCOUNTER 2021-08-28 18:51 | Emergency (ER) | payer SELFPAY ==
[2021-08-28] MEDS ORDERED: KETOROLAC 60 MG/2 ML INJ IM STA (22:47)
[2021-08-28] MEDS ORDERED: HYDROcodone/ACETAMINOPHEN 5-325 MG TAB PO STA (22:47)
--- NOTE | 2021-08-28 23:10 | XRay Report ---
Cervical spine, 3 views HISTORY: Neck pain COMPARISON: 01/16/2021. FINDINGS: Cervical spinal alignment is preserved. There is mild disc space height loss at C4-C5 and C5-C6. Vert ebral body heights are intact. There is no evidence of fracture. Odontoid view is intact. Prevertebra l soft tissues are within normal limits. Visualized lung apices are clear. IMPRESSION: No acute process. Mild multilevel cervical spondylosis, greatest at C4-C5 and C5-C6. Signer Name: Roger Aguila MD Signed: 08/28/2021 11:06 PM Workstation Name: [id number]
--- NOTE | 2021-08-29 00:16 | Emergency Department Report ---
ED Neck Pain/Injury HPI - General Chief Complaint: Neck Pain/Injury Stated Complaint: NECK PAIN Time Seen by Provider: 08/28/21 22:35 Mode of arrival: Ambulatory Limitations: No Limitations - History of Present Illness MD Complaint: neck pain - Related Data Previous Rx's Medication Instructions Recorded Last Taken Type Ibuprofen [Motrin 800 MG tab] 800 mg PO Q8HR PRN #20 tablet 06/06/19 Unknown Rx Sertraline [Zoloft] 50 mg PO QDAY #30 tablet 07/11/21 Unknown Rx hydrOXYzine PAMOATE [Vistaril] 25 mg PO QHS #30 capsule 07/11/21 Unknown Rx Ketorolac [Toradol] 10 mg PO Q6H PRN #15 tablet 08/28/21 Unknown Rx methOCARBAMOL [Robaxin] 750 mg PO Q8H PRN #21 tablet 08/28/21 Unknown Rx Allergies Allergy/AdvReac Type Severity Reaction Status Date / Time milk AdvReac Unknown Verified 11/10/20 09:24 ED Review of Systems ROS: Stated complaint: NECK PAIN Other details as noted in HPI ED Past Medical Hx - Past Medical History Hx Hypertension: Yes Hx Psychiatric Treatment: Yes (depression, self mutilator) - Social History Smoking Status: Never Smoker Substance Use Type: Marijuana - Medications Home Medications: Home Medications Medication Instructions Recorded Confirmed Last Taken Type Ibuprofen [Motrin 800 MG tab] 800 mg PO Q8HR PRN #20 tablet 06/06/19 Unknown Rx Sertraline [Zoloft] 50 mg PO QDAY #30 tablet 07/11/21 Unknown Rx hydrOXYzine PAMOATE [Vistaril] 25 mg PO QHS #30 capsule 07/11/21 Unknown Rx Ketorolac [Toradol] 10 mg PO Q6H PRN #15 tablet 08/28/21 Unknown Rx methOCARBAMOL [Robaxin] 750 mg PO Q8H PRN #21 tablet 08/28/21 Unknown Rx ED Physical Exam - General Limitations: No Limitations ED Course Vital Signs 08/28/21 08/28/21 21:24 23:11 Temperature 98.3 F Pulse Rate 73 Respiratory 19 18 Rate Blood Pressure 152/102 [Right] O2 Sat by Pulse 98 Oximetry Critical care attestation.: If time is entered above; I have spent that time in minutes in the direct care of this critically ill patient, excluding procedure time. ED Disposition Disposition: 01 HOME / SELF CARE / HOMELESS Condition: Stable Instructions: Cervical Radiculopathy, Cervical Radiculopathy, [id number] Prescriptions: methOCARBAMOL [Robaxin] 750 mg PO Q8H PRN #21 tablet PRN Reason: Spasms Ketorolac [Toradol] 10 mg PO Q6H PRN #15 tablet PRN Reason: Pain Referrals: ONEIDA WEBSTER MD [Primary Care Provider] - 3-5 Days
[2021-08-29 00:29] VITALS: BP 140/77
== END 2021-08-29 00:19 | disposition home or self-care (01) ==
LOC: ED 18:51
DX: M54.2 Cervicalgia (principal); I10 Essential (primary) hypertension; F32.A Depression, unspecified; F12.90 Cannabis use, unspecified, uncomplicated; Z91.018 Allergy to other foods
CPT/HCPCS: 72040; 96372; 99283; J1885